=== PATIENT | female | born 1935 | race Caucasian/White ===

== ENCOUNTER → 2016-06-19 | Outpatient (CLI) | payer MEDICARE ==
[~2016-06-19] MED LIST: COUMADIN2 MG PO; COUMADIN4 MG PO; COZAAR50 MG PO; ESTRADIOL0.5 MG PO; FOLIC ACID 1 MG1 MG PO; IMDUR ER TAB 3030 MG PO; LIPITOR TAB 2020 MG PO; SOTALOL80 MG PO; SPIRONOLACTONE25 MG PO; SYNTHROID75 MCG PO; VITAMIN D50000 UNIT PO
== END ==
LOC: LAB 13:52
DX: Z51.81 Encounter for therapeutic drug level monitoring (principal); I48.91 Unspecified atrial fibrillation; Z79.01 Long term (current) use of anticoagulants
CPT/HCPCS: 36415; 85610

== ENCOUNTER → 2016-06-19 | Outpatient (CLI) | payer MEDICARE ==
[~2016-06-19] VITALS: Ht 154.9 cm; Wt 49.4 kg
== END ==
LOC: OPSV 16:43
DX: T60.4X1A Toxic effect of rodenticides, accidental (unintentional), initial encounter (principal)
CPT/HCPCS: 96372; J3430

== ENCOUNTER 2016-06-27 08:09 | Observation (INO) | payer MEDICARE ==
[~2016-06-27] VITALS: Ht 154.9 cm; Wt 53.7 kg
[2016-06-27 08:44] LABS: HEMOGLOBIN 14.5 gm/dl (12.3-15.3); RED BLOOD COUNT 4.22 M/UL (4.00-5.10); WHITE BLOOD COUNT 7.2 K/UL (4.5-11.0)
[2016-06-27 09:00] LABS: BUN/CREATININE RATIO 11 (0-10)
[2016-06-27] MEDS ORDERED: IMDUR ER TAB 3030 MG PO (15:15)
[2016-06-27] MEDS ORDERED: ESTRADIOL0.5 MG PO (15:16)
[2016-06-27] MEDS ORDERED: SOTALOL80 MG PO (15:16)
[2016-06-27] MEDS ORDERED: SPIRONOLACTONE25 MG PO (15:17)
[2016-06-27] MEDS ORDERED: LIPITOR TAB 2020 MG PO (15:17)
[2016-06-27] MEDS ORDERED: COUMADIN4 MG PO (15:19)
[2016-06-27] MEDS ORDERED: COUMADIN2 MG PO (15:19)
[2016-06-27] MEDS ORDERED: SYNTHROID75 MCG PO (15:20)
[2016-06-27] MEDS ORDERED: COZAAR50 MG PO (15:34)
[2016-06-27] MEDS ORDERED: FOLIC ACID 1 MG1 MG PO (15:34)
[2016-06-27] MEDS ORDERED: VITAMIN D50000 UNIT PO (15:35)
[2016-06-28 04:28] LABS: HEMOGLOBIN 13.4 gm/dl (12.3-15.3); RED BLOOD COUNT 3.93 M/UL (4.00-5.10)
[2016-06-28 04:50] LABS: BUN/CREATININE RATIO 13 (0-10)
== END 2016-06-28 15:31 | disposition left against medical advice (07) ==
LOC: ER1 08:09 → PROG CARE 10:07 → ZEROF 10:07 → PROG CARE 18:18
PROVIDERS: Emergency Medicine; Physician Assistant Medical; ADMIT Internal Medicine
DX: I48.91 Unspecified atrial fibrillation (principal); I25.5 Ischemic cardiomyopathy; I49.5 Sick sinus syndrome; I44.7 Left bundle-branch block, unspecified; I11.0 Hypertensive heart disease with heart failure; I50.22 Chronic systolic (congestive) heart failure; E11.9 Type 2 diabetes mellitus without complications; E78.5 Hyperlipidemia, unspecified; E03.9 Hypothyroidism, unspecified; Z87.891 Personal history of nicotine dependence; Z82.49 Family history of ischemic heart disease and other diseases of the circulatory system; Z79.01 Long term (current) use of anticoagulants; Z79.899 Other long term (current) drug therapy; Z90.49 Acquired absence of other specified parts of digestive tract; Z90.710 Acquired absence of both cervix and uterus; Z95.810 Presence of automatic (implantable) cardiac defibrillator; Z98.890 Other specified postprocedural states
CPT/HCPCS: 36415; 71010; 80048; 80053; 82550; 82553; 82962; 83735; 83874; 84439; 84443; 84484; 85025; 85610; 93005; 96365; 96366; 96376; 99291; G0378; J7040

== ENCOUNTER → 2016-08-18 | Outpatient (CLI) | payer MEDICARE | LOC: LAB 10:19 | DX: I50.22 Chronic systolic (congestive) heart failure (principal); I25.5 Ischemic cardiomyopathy; I47.2 Ventricular tachycardia; I48.91 Unspecified atrial fibrillation; R42 Dizziness and giddiness; R06.89 Other abnormalities of breathing; I25.10 Atherosclerotic heart disease of native coronary artery without angina pectoris; Z79.899 Other long term (current) drug therapy | CPT/HCPCS: 36415; 80076; 84439; 84443; 84481 ==

== ENCOUNTER → 2016-09-01 | Outpatient (CLI) | payer MEDICARE | LOC: HEART 5 09:13 | DX: I48.91 Unspecified atrial fibrillation (principal); I10 Essential (primary) hypertension; Z79.899 Other long term (current) drug therapy | CPT/HCPCS: 94010; 94729 ==

== ENCOUNTER → 2016-09-26 | Outpatient (CLI) | payer MEDICARE | LOC: LAB 14:14 | DX: Z51.81 Encounter for therapeutic drug level monitoring (principal); I48.91 Unspecified atrial fibrillation; Z79.01 Long term (current) use of anticoagulants | CPT/HCPCS: 36415; 85610 ==

== ENCOUNTER 2016-10-03 14:58 | Emergency (ER) | payer MEDICARE ==
[2016-10-03 15:43] LABS: HEMOGLOBIN 15.1 gm/dl (12.3-15.3); RED BLOOD COUNT 4.38 M/UL (4.00-5.10); WHITE BLOOD COUNT 10.2 K/UL (4.5-11.0)
== END 2016-10-03 20:12 | disposition home or self-care (01) ==
LOC: ER1 14:58
PROVIDERS: Emergency Medicine
DX: M54.5 Low back pain (principal); S90.31XA Contusion of right foot, initial encounter; I10 Essential (primary) hypertension; I25.10 Atherosclerotic heart disease of native coronary artery without angina pectoris; E87.6 Hypokalemia; N39.0 Urinary tract infection, site not specified; I49.9 Cardiac arrhythmia, unspecified; X50.0XXA Overexertion from strenuous movement or load, initial encounter; Z95.0 Presence of cardiac pacemaker; Z79.01 Long term (current) use of anticoagulants
CPT/HCPCS: 36415; 72131; 73630; 80053; 81001; 85025; 85610; 87086; 96374; 99285; J0696; J7050

== ENCOUNTER 2020-06-27 15:08 | Emergency (ER) | payer MEDICARE ==
[~2020-06-27 15:08] MED LIST changes: +AMIODARONE HCL200 MG PO; +CORDARONE 200M200 MG PO; +ECOTRIN81 MG PO; +FLONASE 0.05% N16 GM; +LEVAQUIN250 MG PO; +LOPRESSOR50 MG PO; +LORTAB 5-325 M1 EACH PO; +OS-CAL 500+D31 EACH PO; +PROTONIX40 MG PO; +TYLENOL W/CODEIN1 E1 PO; +XARELTO 15 MG T15 MG PO; +XARELTO20 MG PO; +ZITHROMAX500 MG PO; +ZYRTEC10 MG PO
[2020-06-27 16:01] LABS: HEMOGLOBIN 15.8 gm/dl (12.3-15.3); RED BLOOD COUNT 4.63 M/UL (4.00-5.10); WHITE BLOOD COUNT 6.4 K/UL (4.5-11.0)
== END 2020-06-27 19:43 | disposition home or self-care (01) ==
LOC: ER1 15:08
PROVIDERS: Physician Assistant Medical
DX: R51.9 Headache, unspecified (principal); I13.0 Hypertensive heart and chronic kidney disease with heart failure and stage 1 through stage 4 chronic kidney disease, or unspecified chronic kidney disease; I50.9 Heart failure, unspecified; E11.9 Type 2 diabetes mellitus without complications; N18.9 Chronic kidney disease, unspecified; I42.9 Cardiomyopathy, unspecified; E03.9 Hypothyroidism, unspecified; F17.210 Nicotine dependence, cigarettes, uncomplicated; Z90.710 Acquired absence of both cervix and uterus; Z90.49 Acquired absence of other specified parts of digestive tract; Z79.899 Other long term (current) drug therapy; Z20.822 Contact with and (suspected) exposure to COVID-19
CPT/HCPCS: 0240U; 70450; 80053; 85025; 85652; 86140; 93005; 96374; 96375; 99285; J0360; J2765

== ENCOUNTER 2020-07-11 13:51 | Emergency (ER) | payer MEDICARE ==
[2020-07-11 14:39] LABS: HEMOGLOBIN 16.4 gm/dl (12.3-15.3); RED BLOOD COUNT 4.71 M/UL (4.00-5.10); WHITE BLOOD COUNT 7.5 K/UL (4.5-11.0)
[2020-07-11 15:01] LABS: BUN/CREATININE RATIO 16 (0-10)
[2020-07-11] MEDS ORDERED: MECLIZINE HCL25 MG PO (17:42)
== END 2020-07-11 18:45 | disposition home or self-care (01) ==
LOC: ER1 13:51
PROVIDERS: Physician Assistant
DX: R51.9 Headache, unspecified (principal); N17.9 Acute kidney failure, unspecified; E86.0 Dehydration; I10 Essential (primary) hypertension; F17.210 Nicotine dependence, cigarettes, uncomplicated
CPT/HCPCS: 70450; 71045; 80053; 82550; 82553; 83874; 84484; 85025; 93005; 99285

== ENCOUNTER → 2020-07-21 | Outpatient (CLI) | payer MEDICARE ==
[~2020-07-21] MED LIST changes: +MECLIZINE HCL25 MG PO
== END ==
LOC: LAB 11:31
PROVIDERS: Internal Medicine Cardiovascular Disease
DX: I48.91 Unspecified atrial fibrillation (principal)
CPT/HCPCS: 36415; 80048; 85610

== ENCOUNTER 2021-01-06 11:40 | Observation (INO) | payer MEDICARE ==
[~2021-01-06] VITALS: Ht 154.9 cm; Wt 61.2 kg
[~2021-01-06 11:40] MED LIST changes: -ECOTRIN81 MG PO; -IMDUR ER TAB 3030 MG PO; -LIPITOR TAB 2020 MG PO
[2021-01-06 12:36] LABS: HEMOGLOBIN 15.7 gm/dl (12.3-15.3); RED BLOOD COUNT 4.52 M/UL (4.00-5.10); WHITE BLOOD COUNT 6.7 K/UL (4.5-11.0)
[2021-01-06 13:04] LABS: BUN/CREATININE RATIO 17 (0-10)
[2021-01-07] MEDS ORDERED: ECOTRIN325 MG PO (08:33)
[2021-01-07 11:03] LABS: HEMOGLOBIN 16.2 gm/dl (12.3-15.3); RED BLOOD COUNT 4.66 M/UL (4.00-5.10); WHITE BLOOD COUNT 5.5 K/UL (4.5-11.0)
[2021-01-07] MEDS ORDERED: VITAMIN D3125 MCG PO (15:10)
[2021-01-07] MEDS ORDERED: HYDROCHLOROTH12.5 MG PO (15:11)
[2021-01-07] MEDS ORDERED: ISORDIL TAB 3030 MG PO (15:15)
[2021-01-07] MEDS ORDERED: LIPITOR TAB 2020 MG PO (15:17)
[2021-01-08 06:52] LABS: HEMOGLOBIN 15.5 gm/dl (12.3-15.3); RED BLOOD COUNT 4.6 M/UL (4.00-5.10); WHITE BLOOD COUNT 5.5 K/UL (4.5-11.0)
[2021-01-08] MEDS ORDERED: ASPIRIN EC81 MG PO (18:18)
[2021-01-08] MEDS ORDERED: MECLIZINE HCL25 MG PO (18:18)
[2021-01-08] MEDS ORDERED: FLORINEF 0.1 M0.1 MG PO (18:34)
== END 2021-01-08 23:27 | disposition home or self-care (01) ==
LOC: ER1 11:40 → CDU 18:19 → MED SURG 4 18:19
PROVIDERS: Physician Assistant; ADMIT Internal Medicine
DX: I63.9 Cerebral infarction, unspecified (principal); G81.91 Hemiplegia, unspecified affecting right dominant side; G93.41 Metabolic encephalopathy; N17.9 Acute kidney failure, unspecified; I12.9 Hypertensive chronic kidney disease with stage 1 through stage 4 chronic kidney disease, or unspecified chronic kidney disease; N18.30 Chronic kidney disease, stage 3 unspecified; E87.6 Hypokalemia; E78.5 Hyperlipidemia, unspecified; I48.0 Paroxysmal atrial fibrillation; I25.10 Atherosclerotic heart disease of native coronary artery without angina pectoris; E03.9 Hypothyroidism, unspecified; I49.5 Sick sinus syndrome; J44.9 Chronic obstructive pulmonary disease, unspecified; M40.209 Unspecified kyphosis, site unspecified; M62.50 Muscle wasting and atrophy, not elsewhere classified, unspecified site; Z20.822 Contact with and (suspected) exposure to COVID-19; Z87.891 Personal history of nicotine dependence; Z79.82 Long term (current) use of aspirin; Z79.01 Long term (current) use of anticoagulants; Z79.899 Other long term (current) drug therapy; Z95.810 Presence of automatic (implantable) cardiac defibrillator; Z23 Encounter for immunization
CPT/HCPCS: ECHO; 36415; 70450; 71045; 80053; 81001; 82550; 82553; 83735; 83874; 84100; 84439; 84443; 84484; 85025; 93005; 93306; 93880; 97161; 99285; G0378; U0002

== ENCOUNTER 2021-07-12 18:13 | Emergency (ER) | payer MEDICARE ==
[~2021-07-12 18:13] MED LIST changes: +ASPIRIN EC81 MG PO; +ECOTRIN325 MG PO; +FLORINEF 0.1 M0.1 MG PO; +HYDROCHLOROTH12.5 MG PO; +ISORDIL TAB 3030 MG PO; +LIPITOR TAB 2020 MG PO; +VITAMIN D3125 MCG PO
[2021-07-12 19:15] LABS: HEMOGLOBIN 15.3 gm/dl (12.3-15.3); RED BLOOD COUNT 4.5 M/UL (4.00-5.10); WHITE BLOOD COUNT 5.4 K/UL (4.5-11.0)
[2021-07-12] MEDS ORDERED: VALACYCLOVIR1000 MG PO (21:57)
[2021-07-12] MEDS ORDERED: MEDROL4 MG PO (21:57)
== END 2021-07-12 22:06 | disposition home or self-care (01) ==
LOC: ER1 18:13
PROVIDERS: Emergency Medicine
DX: R53.1 Weakness (principal); R51.9 Headache, unspecified; E11.9 Type 2 diabetes mellitus without complications; I10 Essential (primary) hypertension; Z79.01 Long term (current) use of anticoagulants
CPT/HCPCS: 70450; 71045; 80053; 81001; 82550; 82553; 84484; 85025; 85610; 85652; 85730; 99285

== ENCOUNTER 2021-09-16 12:06 | Emergency (ER) | payer MEDICARE ==
[~2021-09-16 12:06] MED LIST changes: +MEDROL4 MG PO; +VALACYCLOVIR1000 MG PO
[2021-09-16 13:01] LABS: HEMOGLOBIN 10.5 gm/dl (12.3-15.3); RED BLOOD COUNT 3.11 M/UL (4.00-5.10); WHITE BLOOD COUNT 6.2 K/UL (4.5-11.0)
== END 2021-09-16 14:50 | disposition home or self-care (01) ==
LOC: ER1 12:06
PROVIDERS: Emergency Medicine
DX: R04.0 Epistaxis (principal); I48.91 Unspecified atrial fibrillation; I10 Essential (primary) hypertension; Z95.0 Presence of cardiac pacemaker
CPT/HCPCS: 80053; 85025; 85610; 85730; 99283